=== PATIENT | female | born 1960 | race Caucasian/White ===

== ENCOUNTER 2018-09-15 15:32 | Outpatient (RCR) | payer MEDICARE ==
[2018-10-05] MEDS ORDERED: FLUT5POW4 MC (13:08)
[2018-10-05] MEDS ORDERED: LORA10TA76 PO (13:08)
[2018-10-05] MEDS ORDERED: METF-397 PO (13:08)
[2018-10-05] MEDS ORDERED: HYDR-3062 PO (13:08)
[2018-10-05] MEDS ORDERED: RANI-613 PO (13:08)
[2018-10-05] MEDS ORDERED: LURA20TA PO (13:08)
[2018-10-05] MEDS ORDERED: MIDO2.5T PO (13:08)
[2018-10-05] MEDS ORDERED: DIAZ5TAB PO (13:08)
[2018-10-05] MEDS ORDERED: TRAZ150T72 PO (13:08)
== END 2018-12-14 | disposition home or self-care (01) ==
LOC: LAB 15:32
PROVIDERS: ATTEND Surgery
DX: R19.7 Diarrhea, unspecified (principal)
CPT/HCPCS: 87015; 87045; 87046; 87324; 87328; 87329; 87449; 87493; 87899

== ENCOUNTER → 2018-09-28 | Outpatient (CLI) | payer MEDICARE | END | disposition home or self-care (01) | LOC: PREOP 05:49 | PROVIDERS: ATTEND Surgery | DX: Z01.818 Encounter for other preprocedural examination (principal) ==

== ENCOUNTER 2018-10-05 12:45 | Day surgery (SDC) | payer MEDICARE ==
[~2018-10-05] VITALS: Ht 162.6 cm; Wt 72.6 kg
[2018-10-05] MEDS ORDERED: LACTATED RINGERS 1,000 ML IV ONE (12:48)
--- OUTSIDE RECORDS SUMMARY | 2018-10-05 12:48 | XMS REPORT | Continuity of Care Document ---
Author Organization Unknown Address Unknown Allergies There is no data. Medications There is no data. Problems There is no data. Procedures There is no data. Results Test Result Range PDM - 09 PANEL (PROFILE 1) - 08/18/18 12:39 Prescribed Drug 1 Valium(TM) NRG Creatinine 128.5 mg/dL > or=20.0 pH 5.66 4.5 - 9.0 Oxidant NEGATIVE mcg/mL <200 Amphetamines NEGATIVE ng/mL <500 medMATCH Amphetamines CONSISTENT NRG Benzodiazepines POSITIVE ng/mL <100 Marijuana Metabolite POSITIVE ng/mL <20 Cocaine Metabolite NEGATIVE ng/mL <150 medMATCH Cocaine Metab CONSISTENT NRG Opiates POSITIVE ng/mL <100 Oxycodone NEGATIVE ng/mL <100 medMATCH Oxycodone CONSISTENT NRG COMMENT NRG Alphahydroxyalprazolam NEGATIVE ng/mL <25 medMATCH aOH alprazolam CONSISTENT NRG Alphahydroxymidazolam NEGATIVE ng/mL <50 medMATCH aOH midazolam CONSISTENT NRG Alphahydroxytriazolam NEGATIVE ng/mL <50 medMATCH aOH triazolam CONSISTENT NRG Aminoclonazepam NEGATIVE ng/mL <25 medMATCH Aminoclonazepam CONSISTENT NRG Hydroxyethylflurazepam NEGATIVE ng/mL <50 medMATCH OH,Et flurazepam CONSISTENT NRG Lorazepam NEGATIVE ng/mL <50 medMATCH Lorazepam CONSISTENT NRG Nordiazepam 1243 ng/mL <50 medMATCH Nordiazepam CONSISTENT NRG Oxazepam 4587 ng/mL <50 medMATCH Oxazepam CONSISTENT NRG Temazepam 3625 ng/mL <50 medMATCH Temazepam CONSISTENT NRG Codeine NEGATIVE ng/mL <50 medMATCH Codeine CONSISTENT NRG Hydrocodone 558 ng/mL <50 medMATCH Hydrocodone CONSISTENT NRG Hydromorphone 141 ng/mL <50 medMATCH Hydromorphone CONSISTENT NRG Morphine NEGATIVE ng/mL <50 medMATCH Morphine CONSISTENT NRG Norhydrocodone 919 ng/mL <50 medMATCH Norhydrocodone CONSISTENT NRG Prescribed Drug 2 Hydrocodone NRG Marijuana Metabolite 6 ng/mL <5 medMATCH Marijuana Metab INCONSISTENT NRG Barbiturates NEGATIVE ng/mL <300 medMATCH Barbiturates CONSISTENT NRG Methadone Metabolite NEGATIVE ng/mL <100 medMATCH Methadone Metab CONSISTENT NRG Phencyclidine NEGATIVE ng/mL <25 medMATCH Phencyclidine CONSISTENT NRG Encounters ACCT No. Visit Date/Time Discharge Status Pt. Type Provider Facility Loc./Unit Complaint [id number] 08/18/2018 11:20:00 08/18/2018 23:59:59 [id number] 08/18/2018 11:20:00 Document Registration
[2018-10-05] MEDS ORDERED: FLUT5POW4 MC (13:08)
[2018-10-05] MEDS ORDERED: LURA20TA PO (13:08)
[2018-10-05] MEDS ORDERED: MIDO2.5T PO (13:08)
[2018-10-05] MEDS ORDERED: RANI150T46 PO (13:08)
[2018-10-05] MEDS ORDERED: DIAZ5TAB PO (13:08)
[2018-10-05] MEDS ORDERED: TRAZ150T72 PO (13:08)
[2018-10-05] MEDS ORDERED: LORA10TA76 PO (13:08)
[2018-10-05] MEDS ORDERED: HYDR-3062 PO (13:08)
[2018-10-05] MEDS ORDERED: METF-397 PO (13:08)
--- NOTE | 2018-10-05 13:08 | Progress Note-Pre Operative ---
Pre-Operative Progress Note H&P Reviewed The H&P was reviewed, patient examined and no changes noted. Date Seen by Provider: Oct 05, 2018 Time Seen by Provider: 13:07 Date H&P Reviewed: Oct 05, 2018 Time H&P Reviewed: 13:08 Pre-Operative Diagnosis: chronic diarrhea, gerd, epigastric abd pain, hx polyps MAGGIE MIRANDA DO Oct 05, 2018 13:08
[2018-10-05 13:22] VITALS: BP 125/89
[2018-10-05] MEDS ORDERED: PROPOFOL INJECTION 50 ML IV ONE (13:22)
[2018-10-05] MEDS ORDERED: fentaNYL INJECTION 100 MCG/2 ML AMP ONE (13:23)
[2018-10-05] MEDS ORDERED: MIDAZOLAM 2 MG/2 ML (VERSED) VIAL ONE (13:23)
[2018-10-05] MEDS: HURRICAINE EXT TUBE (BENZOCAINE) XX PRN ×2 (13:29→13:30)
--- NOTE | 2018-10-05 14:28 | Discharge Inst-Simple/Standard ---
Discharge Inst-Standard Patient Instructions/Follow Up Plan of Care/Instructions/FU: 2 weeks Elvis Activity as Tolerated: Yes Discharge Diet: Regular Diet MAGGIE MIRANDA DO Oct 05, 2018 14:28
--- NOTE | 2018-10-05 14:28 | Progress Note-Post Operative ---
Post-Operative Progess Note Surgeon (s)/Remedial Teacher (s) Surgeon MAGGIE MIRANDA DO Remedial Teacher: na Pre-Operative Diagnosis chronic diarrhea, gerd, epigastric abd pain, hx polyps Post-Operative Diagnosis gastritis, hepatic flexure polyps x 3 transverse colon polyps x 2 Procedure & Operative Findings Date of Procedure 10/05/18 Procedure Performed/Findings egd c biopsies colonoscopy c hot biopsy polypectomy x 5 and random cold biopsies Anesthesia Type per review engineer Estimated Blood Loss Estimated blood loss (mL): scant Specimens/Packing Specimens Removed antrum, ge, hepatic flexure polyps x 3 transverse colon polyps x 2, random colon MAGGIE MIRANDA DO Oct 05, 2018 14:27
[2018-10-05 14:40] VITALS: BP 117/69
[2018-10-05] MEDS ORDERED: LACTATED RINGERS 1,000 ML IV STA (14:40)
[2018-10-05 15:05] VITALS: BP 129/83
[2018-10-05 15:16] VITALS: BP 129/83
--- NOTE | 2018-10-05 20:16 | OPERATIVE REPORT ---
DATE OF SERVICE: 10/05/2018 PREOPERATIVE DIAGNOSES: Chronic diarrhea, gastroesophageal reflux disease, epigastric abdominal pain, history of polyps. POSTOPERATIVE DIAGNOSES: Gastritis, hepatic flexure polyps x3, transverse colon polyps x2. PROCEDURE: EGD with biopsies, colonoscopy with hot biopsy polypectomy x5 and random cold biopsies. SURGEON: Maggie Leal DO ANESTHESIA: Per MANUGRAPHER. ESTIMATED BLOOD LOSS: Scant. COMPLICATIONS: None. INDICATIONS: The patient is a 58-year-old female with chronic diarrhea, gastroesophageal reflux disease, epigastric abdominal pain and history of polyps. She understands risks and benefits of procedure and wished to proceed with procedure. Consent was signed in the chart. DESCRIPTION OF PROCEDURE: The patient was taken to the endoscopy suite, placed in left lateral recumbent position. Timeout was performed. Scope was inserted in mouth, down the esophagus, stomach and the duodenum without difficulty. There were no polyps, masses or ulcerations within the duodenum. Scope was then slowly retracted back into the stomach where it was further insufflated. Slight gastritis appearance. Biopsy of the antrum was obtained. No polyps, masses or ulcerations. Scope was retroflexed noting no other pathology. Scope was returned to its normal position, slowly withdrawn to the distal esophagus, which had normal appearance. No polyps, masses or ulcerations. Biopsy was obtained. Scope was then slowly retracted back until completely removed noting no other pathology. Digital rectal exam was performed. There were no palpable polyps, mass or ulcerations. The scope was inserted in the rectum and advanced all the way to the cecum with minimal difficulty. Prep was adequate. Scope was then slowly retracted back. There were no polyps, masses or ulceration within the cecum, ascending colon. In the hepatic flexure, 3 polyps were present, which hot biopsy polypectomy was performed on these. Scope was continued to be slowly retracted back. Two more polyps were present in the transverse colon, which hot biopsy polypectomy was performed. Scope was then continued to be slowly retracted back. There were no polyps, masses or ulcerations in the descending, sigmoid or rectum. Once in the rectum, scope was retroflexed noting no other pathology. Scope was returned to its normal position, slowly withdrawn until completely removed. The patient also had random colon biopsies obtained as the scope was being withdrawn. RECOMMENDATIONS: The patient will continue on current medications. She will follow up on pathology in 2 weeks. The patient will need repeat colonoscopy in 3 years. Any issues before that, will be seen at that time. Further recommendations pending pathology results. Job ID: [id number] DocumentID: [id number] Dictated Date: 10/05/2018 14:31:39 Pastry Cook Date: 10/05/2018 20:16:13 Dictated By: MAGGIE LEAL DO
== END 2018-10-05 15:20 | disposition home or self-care (01) ==
LOC: ENDO 12:45
PROVIDERS: ATTEND Surgery
DX: K52.9 Noninfective gastroenteritis and colitis, unspecified (principal); D12.3 Benign neoplasm of transverse colon; K29.70 Gastritis, unspecified, without bleeding; K21.9 Gastro-esophageal reflux disease without esophagitis; Z87.19 Personal history of other diseases of the digestive system; Z86.73 Personal history of transient ischemic attack (TIA), and cerebral infarction without residual deficits; Z87.891 Personal history of nicotine dependence; Z79.84 Long term (current) use of oral hypoglycemic drugs; Z79.899 Other long term (current) drug therapy
CPT/HCPCS: 82962; 88305

== ENCOUNTER → 2019-06-01 | Outpatient (CLI) | payer MEDICARE ==
[~2019-06-01] MED LIST: DIAZ5TAB PO; FLUT5POW4 MC; GADOBUTROL 7.5 MMOL/7.5 ML (GADAVIST) VIAL IV ONE; HYDR-3062 PO; LORA10TA76 PO; LURA20TA PO; METF-397 PO; MIDO2.5T PO; RANI-613 PO; TRAZ150T72 PO
--- NOTE | 2019-06-01 14:26 | Diagnostic Imaging Report ---
PROCEDURE: MR imaging of the brain with and without contrast. TECHNIQUE: Multiplanar, multisequence MR imaging of the brain was performed with and without contrast. INDICATION: Multiple sclerosis. Patient has increasing symptoms of blurred vision and fatigue. COMPARISON: No prior studies are available for comparison. FINDINGS: Ventricular size and sulcal pattern are normal. There are numerous periventricular and subcortical white matter lesions noted, consistent with the patient's diagnosis of multiple sclerosis. No diffusion restriction is identified to suggest acute ischemia. The normal expected flow-voids within the carotid siphons are seen. No acute intra-axial or extra-axial hemorrhage is detected. Following contrast administration, no suspicious enhancement is identified. In particular, no definite findings to suggest active demyelination is identified. Corpus callosum is unremarkable. The sella and parasellar structures are unremarkable. IMPRESSION: White matter changes consistent with multiple sclerosis. No findings to suggest active demyelination is identified. Dictated by: Dictated on workstation # [id number]
== END ==
LOC: RAD 13:20
PROVIDERS: ATTEND Nurse Practitioner Family
DX: G35 Multiple sclerosis (principal)
CPT/HCPCS: 70553

== ENCOUNTER 2020-03-05 20:56 | Emergency (ER) | payer MEDICARE ==
[~2020-03-05] VITALS: Ht 162.6 cm; Wt 68.9 kg
[~2020-03-05 20:56] MED LIST changes: +ACHD5005 PO; -GADOBUTROL 7.5 MMOL/7.5 ML (GADAVIST) VIAL IV ONE; -HYDR-3062 PO
--- NOTE | 2020-03-05 21:04 | ED Head Injury ---
General Stated Complaint: SEIZURE,FELL,HEAD LAC Source: patient Exam Limitations: no limitations History of Present Illness Date Seen by Provider: Mar 05, 2020 Time Seen by Provider: 21:04 Initial Comments 59-year-old female presents with a laceration of her posterior scalp. Patient has a history of MS and started having more frequent seizures. Patient reports that when she had her seizure she had her head on a metal stove. She has approximate 1/2 cm laceration with minimal bleeding. She has no other complaints at this time. She does report however that due to her increased seizures she's her head frequently recently. Allergies and Home Medications Allergies Coded Allergies: amantadine (Verified Allergy, Unknown, 10/05/18) risperidone (Verified Allergy, Unknown, 10/05/18) zolpidem (Verified Allergy, Unknown, 10/05/18) Home Medications Diazepam 5 Mg Tablet, 5 MG PO TID, (Reported) Fluticasone Propionate 5 Gm Powder, 50 MCG MC DAILY, (Reported) Hydrocodone Bit/Acetaminophen 1 Each Tablet, 1 EACH PO TID PRN for PAIN- MODERATE, (Reported) Loratadine 10 Mg Tablet, 10 MG PO DAILY, (Reported) Lurasidone HCl 20 Mg Tablet, 20 MG PO DAILY, (Reported) Metformin HCl 500 Mg Tablet, 500 MG PO BID, (Reported) Midodrine HCl 2.5 Mg Tablet, 2.5 MG PO BID, (Reported) Ranitidine HCl 150 Mg Tablet, 150 MG PO DAILY, (Reported) Trazodone HCl 150 Mg Tablet, 300 MG PO HS, (Reported) Patient Home Medication List Home Medication List Reviewed: Yes Review of Systems Review of Systems Constitutional: no symptoms reported Eyes: No Symptoms Reported Ears, Nose, Mouth, Throat: no symptoms reported Respiratory: no symptoms reported Cardiovascular: no symptoms reported Gastrointestinal: no symptoms reported Skin: see HPI Psychiatric/Neurological: See HPI Past Jhhzrgp-Esunud-Ifjrrj Hx Past Med/Social Hx: Reviewed Nursing Past Med/Soc Hx Patient Social History Recent Foreign Travel: No Contact w/Someone Who Travel: No Seasonal Allergies Seasonal Allergies: No Past Medical History Respiratory: No Cardiac: No Neurological: No Multiple Sclerosis, TIA Genitourinary: No Gastrointestinal: No Musculoskeletal: Yes (MS) Endocrine: No HEENT: No Cancer: No Psychosocial: No Integumentary: No Blood Disorders: No Physical Exam Vital Signs Vital Signs - First Documented 03/05/20 21:01 Temp 36.1 Pulse 71 Resp 16 B/P (MAP) 133/70 (91) O2 Delivery Room Air Capillary Refill : Height, Weight, BMI Height: 5'4.00" Weight: 160lbs. 0.0oz. [id number]; 27.5 BMI Method: General Appearance: no apparent distress HEENT: PERRL/EOMI Neck: full range of motion, supple Cardiovascular: normal peripheral pulses, regular rate, rhythm Respiratory: lungs clear, normal breath sounds, no respiratory distress Gastrointestinal: non tender, soft Extremities: normal range of motion Psychiatric: alert, depressed affect Crainal Nerves: normal hearing Skin: other (1.5 cm laceration posterior scalp) Procedures/Interventions Wound Location: Scalp Wound Length (cm): 1.5 Wound's Depth, Shape: superficial Wound Explored: clean Betadine Prep?: Yes Staple Repair: Stapler 35W Number of Sutures: 2 Sterile Dressing Applied?: Yes Progress Patient tolerated well with close approximation of margins Progress/Results/Core Measures Results/Orders Lab Results Laboratory Tests Test 03/05/20 21:20 Range/Units White Blood Count 6.8 4.3-11.0 10^3/uL Red Blood Count 4.19 L 4.35-5.85 10^6/uL Hemoglobin 12.7 11.5-16.0 G/DL Hematocrit 37 35-52 % Mean Corpuscular Volume 89 80-99 FL Mean Corpuscular Hemoglobin 30 25-34 PG Mean Corpuscular Hemoglobin Concent 34 32-36 G/DL Red Cell Distribution Width 13.1 10.0-14.5 % Platelet Count 214 130-400 10^3/uL Mean Platelet Volume 10.7 H 7.4-10.4 FL Immature Granulocyte % (Auto) 0 % Neutrophils (%) (Auto) 55 42-75 % Lymphocytes (%) (Auto) 35 12-44 % Monocytes (%) (Auto) 7 0-12 % Eosinophils (%) (Auto) 3 0-10 % Basophils (%) (Auto) 1 0-10 % Neutrophils # (Auto) 3.8 1.8-7.8 X 10^3 Lymphocytes # (Auto) 2.3 1.0-4.0 X 10^3 Monocytes # (Auto) 0.4 0.0-1.0 X 10^3 Eosinophils # (Auto) 0.2 0.0-0.3 10^3/uL Basophils # (Auto) 0.7 H 0.0-0.1 10^3/uL Immature Granulocyte # (Auto) 0.0 0.0-0.1 10^3/uL Sodium Level 141 135-145 MMOL/L Potassium Level 3.0 L 3.6-5.0 MMOL/L Chloride Level 104 98-107 MMOL/L Carbon Dioxide Level 24 21-32 MMOL/L Anion Gap 13 5-14 MMOL/L Blood Urea Nitrogen 9 7-18 MG/DL Creatinine 1.07 0.60-1.30 MG/DL Estimat Glomerular Filtration Rate 52 BUN/Creatinine Ratio 8 Glucose Level 122 H 70-105 MG/DL Calcium Level 9.1 8.5-10.1 MG/DL Corrected Calcium 8.8 8.5-10.1 MG/DL Total Bilirubin 0.4 0.1-1.0 MG/DL Aspartate Amino Transf (AST/SGOT) 16 5-34 U/L Alanine Aminotransferase (ALT/SGPT) 13 0-55 U/L Alkaline Phosphatase 75 40-136 U/L Total Protein 6.8 6.4-8.2 GM/DL Albumin 4.4 3.2-4.5 GM/DL My Orders Orders - ALBERTO,YANA L DO Ct Head Wo (03/05/20 21:08) Cbc With Automated Diff (03/05/20 21:08) Comprehensive Metabolic Panel (03/05/20 21:08) Dipht,Pertuss(Acell),Tet Adult (Boostrix (03/05/20 21:15) Ua Culture If Indicated (03/05/20 21:08) Medications Given in ED Current Medications Medications Dose Ordered Sig/Desiree Route Start Time Stop Time Status Last Admin Dose Admin Diphtheria/ Tetanus/Acell Pertussis 0.5 ml ONCE ONCE IM 03/05/20 21:15 03/05/20 21:16 DC 03/05/20 21:55 0.5 ML Vital Signs/I&O 03/05/20 21:01 Temp 36.1 Pulse 71 Resp 16 B/P (MAP) 133/70 (91) O2 Delivery Room Air Progress Progress Note : Time: 22:13 Progress Note Patient with no further seizure activity here in the ER. Patient with no acute findings on labs or CT head. Patient declined a urinalysis evaluation. Patient stable and will be discharged home. She should follow-up here or with her primary care provider in 10 days for staple removal. Discussed with patient and she voiced understanding Diagnostic Imaging Diagonstic Imaging: CT Plain Films/CT/US/NM/MRI: head Comments [facility], [place] NAME: CHLOE BRAVO [facility] REC#: [id number] PT STATUS: REG ER : 1960 PHYSICIAN: YANA ALBERTO DO ADMIT DATE: 03/05/20/ER FS Signed Date of Exam:03/05/20 CT HEAD WO EXAMINATION: CT head without contrast. TECHNIQUE: Multiple contiguous axial images were obtained through the brain without the use of intravenous contrast. All CT scans use one or more of the following dose optimizing techniques: automated exposure control, MA and/or KvP adjustment based on a patient size and exam type, or iterative reconstruction. HISTORY: Seizure, fall onto head. COMPARISON: MRI brain brain 06/01/2019 FINDINGS: Mild central dominant cerebral volume loss. Mild hypodensities throughout the supratentorial white matter of both cerebral hemispheres. No acute intracranial hemorrhage or abnormal extra-axial fluid collections are present. Calcification of the intracranial ICAs. No hyperdense vessel. The calvarium is intact. Small posterior scalp soft tissue swelling and surgical staple possibly from an underlying laceration. The mastoid air cells are clear. The visualized paranasal sinuses are clear. The orbits are normal. IMPRESSION: 1. No acute intracranial abnormality. 2. Mild white matter changes compatible with findings of multiple sclerosis as seen on prior MRI of the brain from 06/01/2019. 3. Posterior scalp laceration and small hematoma without underlying calvarial fracture. Dictated by: Dictated on workstation # [id number] Dict: 03/05/202149 Trans: 03/05/202154 [facility] [id number] Interpreted by: TATIANA ZIMMERMAN DO Electronically signed by: TATIANA ZIMMERMAN DO 03/05/202154 Reviewed: Reviewed by Me, Reviewed/Discussed Departure Impression Primary Impression: Seizure Additional Impressions: Multiple sclerosis Laceration of scalp Qualified Codes: S01.01XA - Laceration without foreign body of scalp, initial encounter Disposition: HOME, SELF-CARE Condition: Stable Departure-Patient Inst. Referrals: NO,LOCAL PHYSICIAN (PCP) Primary Care Physician JORGE A OCASIO APRN (Family) Primary Care Physician Patient Instructions: Seizures, Laceration Repair With Lamar (DC) Add. Discharge Instructions: Follow-up with your primary care provider in 2-3 days for continuation of care and recheck in today symptoms YANA ALBERTO DO Mar 05, 2020 21:04
[2020-03-05] MEDS ORDERED: TETANUS,DIPTH,PERTUSS P/F (BOOSTRIX) 0.5 ML VIAL IM ONE (21:15)
[2020-03-05 21:33] LABS: HEMATOCRIT 37 % (35-52); HEMOGLOBIN 12.7 G/DL (11.5-16.0); MEAN CORPUSCULAR HEMOGLOBIN 30 PG (25-34); MEAN CORPUSCULAR HGB CONC 34 G/DL (32-36); MEAN CORPUSCULAR VOLUME 89 FL (80-99); MEAN PLATELET VOLUME 10.7 FL (7.4-10.4); NEUTROPHILS % (AUTO) 55 % (42-75); PLATELET COUNT 214 10^3/uL (130-400); WHITE BLOOD COUNT 6.8 10^3/uL (4.3-11.0)
[2020-03-05 21:34] LABS: BASOPHILS # (AUTO) 0.7 10^3/uL (0.0-0.1); BASOPHILS % (AUTO) 1 % (0-10); EOSINOPHILS # (AUTO) 0.2 10^3/uL (0.0-0.3); EOSINOPHILS % (AUTO) 3 % (0-10); LYMPHOCYTES # (AUTO) 2.3 X 10^3 (1.0-4.0); LYMPHOCYTES % (AUTO) 35 % (12-44); MONOCYTES # (AUTO) 0.4 X 10^3 (0.0-1.0); MONOCYTES % (AUTO) 7 % (0-12); NEUTROPHILS # (AUTO) 3.8 X 10^3 (1.8-7.8)
[2020-03-05 21:49] LABS: BILIRUBIN,TOTAL 0.4 MG/DL (0.1-1.0); CALCIUM 9.1 MG/DL (8.5-10.1); CREATININE SERUM 1.07 MG/DL (0.60-1.30)
[2020-03-05 21:50] LABS: ALBUMIN 4.4 GM/DL (3.2-4.5); TOTAL PROTEIN 6.8 GM/DL (6.4-8.2)
--- NOTE | 2020-03-05 21:53 | Diagnostic Imaging Report ---
EXAMINATION: CT head without contrast. TECHNIQUE: Multiple contiguous axial images were obtained through the brain without the use of intravenous contrast. All CT scans use one or more of the following dose optimizing techniques: automated exposure control, MA and/or KvP adjustment based on a patient size and exam type, or iterative reconstruction. HISTORY: Seizure, fall onto head. COMPARISON: MRI brain brain 06/01/2019 FINDINGS: Mild central dominant cerebral volume loss. Mild hypodensities throughout the supratentorial white matter of both cerebral hemispheres. No acute intracranial hemorrhage or abnormal extra-axial fluid collections are present. Calcification of the intracranial ICAs. No hyperdense vessel. The calvarium is intact. Small posterior scalp soft tissue swelling and surgical staple possibly from an underlying laceration. The mastoid air cells are clear. The visualized paranasal sinuses are clear. The orbits are normal. IMPRESSION: 1. No acute intracranial abnormality. 2. Mild white matter changes compatible with findings of multiple sclerosis as seen on prior MRI of the brain from 06/01/2019. 3. Posterior scalp laceration and small hematoma without underlying calvarial fracture. Dictated by: Dictated on workstation # [id number]
--- NOTE | 2020-03-05 22:00 | NUR ---
PT REFUSED TO PROVIDE URINE SAMPLE.
[2020-03-05 22:11] VITALS: BP 129/67
== END 2020-03-05 22:11 | disposition home or self-care (01) ==
LOC: EDUNIT# 20:56 → ER FS 20:58
DX: S01.01XA Laceration without foreign body of scalp, initial encounter (principal); G35 Multiple sclerosis; R56.9 Unspecified convulsions; Z88.8 Allergy status to other drugs, medicaments and biological substances; Z23 Encounter for immunization; Z86.73 Personal history of transient ischemic attack (TIA), and cerebral infarction without residual deficits; W22.8XXA Striking against or struck by other objects, initial encounter
CPT/HCPCS: 36415; 70450; 80053; 85025; 90715

== ENCOUNTER → 2020-06-29 | Outpatient (CLI) | payer MEDICARE ==
--- NOTE | 2020-06-29 17:23 | Diagnostic Imaging Report ---
INDICATION: Multiple sclerosis, questioned gastroparesis. EXAMINATION: 1 mCi of technetium 99 sulfur colloid was ingested orally. FINDINGS: Percentage emptying at one hour was 40%, percent emptying at 2 hours was 65%. Percent emptying at 3 hours was 82%. Percent emptying at 4 hours was 94%. These values are within normal range. IMPRESSION: Unremarkable gastric emptying study. Dictated by: Dictated on workstation # [id number]
== END ==
LOC: CARD 08:54
PROVIDERS: ATTEND Pediatrics
DX: G35 Multiple sclerosis (principal)
CPT/HCPCS: 78264; A9541